=== PATIENT | male | born 1965 | race African-American/Black ===

== ENCOUNTER 2020-12-31 04:49 | Observation (INO) ==
[2020-12-31] MEDS ORDERED: KETOROLAC 30 MG/1 ML VIAL IV STA (05:09)
[2020-12-31] MEDS ORDERED: SODIUM CHLORIDE 0.9% 1,000 ML IV STA (05:09)
[2020-12-31] MEDS ORDERED: ONDANSETRON 4 MG/2 ML VIAL IV STA (05:09)
[2020-12-31 05:29] LABS: Basophils % 0.3 % (0.0-0.8); Eosinophils # 0.1 10*3/uL (0.0-0.87); Eosinophils % 0.8 % (0.00-10.9); Hematocrit 41.9 VOL% (42.0-52.0); Hemoglobin 13.7 GM/DL (14.0-18.0); Immature Granulocytes % 0.3 %; Immature Granulocytes Absolute 0.02 #; Lymphocytes % 16.3 % (21.2-54.2); Mean Corpuscular HGB Conc 32.7 GM/DL (32-36); Mean Corpuscular Volume 81.8 FL (87-102); Mean Platelet Volume 9.3 FL (9.6-12.0); Monocytes % 6.9 % (1.7-12.7); Neutrophils % 75.4 % (38.7-73.9); Platelet Count 198 T/CUMM (130-400); Red Blood Count 5.12 MC/CUMM (3.8-5.5); Red Cell Distribution Width 14.4 % (9.3-17.3); White Blood Count 5.9 T/CUMM (4-12)
[2020-12-31 05:44] LABS: Albumin 3.7 G/DL (3.4-5.0); Bilirubin,Total 1.1 MG/DL (0.2-1.0); Calcium 8.9 MG/DL (8.5-10.1); Osmolality,Calculated 287.1 MOS/KG (273-304); Potassium 4.1 MMOL/L (3.5-5.1); Total Protein 7.2 G/DL (6.4-8.2)
[2020-12-31] MEDS ORDERED: HYDROmorphone 2 MG/1 ML VIAL IV PRN ×3 (06:24→08:30)
[2020-12-31] MEDS ORDERED: ONDANSETRON 4 MG/2 ML VIAL IV PRN (06:24)
[2020-12-31 06:32] LABS: Bacteria,Urine Occasional /HPF (Few); Bilirubin,Urine Negative (Negative); Blood, Urine Negative (Negative); Glucose,Urine (UA) Negative (Negative); Ketones,Urine 5 mg/dL (Negative); Mucus,Urine Occasional /LPF (Occasional); Nitrite,Urine Negative (Negative); Protein,Urine Negative; RBC,Urine 5 /HPF (0-4); Squamous Epithelial Cell,Urine Occasional /HPF (0-10); Urine Appearance CLEAR (Clear); Urine Color Yellow (Yellow); Urine Specific Gravity 1.014 (1.001-1.035); Urine Urobilinogen < 2.0 EU/DL (0.2-1.0)
[2020-12-31] MEDS: DEXTROSE 5% NACL 0.45% 1,000 ML IV SCH ×2 (09:50→19:55)
[2020-12-31] MEDS: PANTOPRAZOLE 40 MG TABLET PO SCH (10:40)
[2020-12-31] MEDS ORDERED: fentaNYL 100 MCG/2 ML VIAL ONE ×2 (12:14→14:58)
[2020-12-31] MEDS ORDERED: MIDAZOLAM 2 MG/2 ML VIAL ONE (12:14)
[2020-12-31] MEDS ORDERED: ONDANSETRON 4 MG/2 ML VIAL ONE (12:22)
[2020-12-31] MEDS ORDERED: propofoL 200 MG/20 ML VIAL IV ONE (12:22)
[2020-12-31] MEDS ORDERED: ROCURONIUM 50 MG/5 ML VIAL IV ONE (12:22)
[2020-12-31] MEDS ORDERED: SUCCINYLCHOLINE 200 MG/10 ML VIAL ONE (12:22)
[2020-12-31] MEDS ORDERED: LIDOCAINE 2% 5 ML VIAL ONE (12:22)
[2020-12-31] MEDS ORDERED: LIDOCAINE 1%/EPI INJ 20 ML VIAL ONE (12:37)
[2020-12-31] MEDS ORDERED: BUPIVACAINE MPF 0.25% 30 ML VIAL ONE (12:37)
[2020-12-31] MEDS ORDERED: ACETAMINOPHEN INJ 1,000 MG/100 ML VIAL IV ONE (14:17)
[2020-12-31] MEDS ORDERED: DEXAMETHASONE 4 MG/1 ML VIAL ONE (14:17)
[2020-12-31] MEDS ORDERED: ePHEDrine 50 MG/ML VIAL ONE (14:20)
[2020-12-31] MEDS ORDERED: SUGAMMADEX 200 MG/2 ML VIAL IV ONE (14:31)
[2020-12-31] MEDS ORDERED: SEVOFLURANE 1 UNIT/15 MINUTE INH ONE (15:02)
[2020-12-31 16:25] LABS: Hematocrit 39.5 VOL% (42.0-52.0)
[2020-12-31 23:51] LABS: Hematocrit 39.6 VOL% (42.0-52.0)
[2021-01-01 05:17] LABS: Basophils % 0.1 % (0.0-0.8); Hematocrit 39.3 VOL% (42.0-52.0); Immature Granulocytes % 0.8 %; Immature Granulocytes Absolute 0.07 #; Lymphocytes # 0.9 10*3/uL (1.4-4.0); Lymphocytes % 9.6 % (21.2-54.2); Mean Corpuscular HGB Conc 33.1 GM/DL (32-36); Mean Corpuscular Volume 80.7 FL (87-102); Mean Platelet Volume 9.3 FL (9.6-12.0); Monocytes % 7.7 % (1.7-12.7); Neutrophils % 81.8 % (38.7-73.9); Platelet Count 183 T/CUMM (130-400); Red Blood Count 4.87 MC/CUMM (3.8-5.5); Red Cell Distribution Width 14.3 % (9.3-17.3)
[2021-01-01] MEDS: DEXTROSE 5% NACL 0.45% 1,000 ML IV SCH ×2 (05:29→05:30)
[2021-01-01 07:01] LABS: Albumin 3.1 G/DL (3.4-5.0); Bilirubin,Total 1.3 MG/DL (0.2-1.0); Osmolality,Calculated 274.8 MOS/KG (273-304); Total Protein 6.4 G/DL (6.4-8.2)
[2021-01-01 07:56] LABS: Hematocrit 38.1 VOL% (42.0-52.0)
[2021-01-01] MEDS: PANTOPRAZOLE 40 MG TABLET PO SCH (08:25)
[2021-01-01 12:44] VITALS: BP 109/69
== END 2021-01-01 13:00 | disposition home or self-care (01) ==
LOC: N.ED 04:49 → N.EDINP 04:49 → N.3E 15:34
PROVIDERS: ADMIT Surgery; ATTEND Surgery
PROC: LAPCHOL (2020-12-31 13:39)